=== PATIENT | female | born 1955 | race Caucasian/White ===

== ENCOUNTER → 2016-07-26 | Outpatient (CLI) | payer MEDICARE | LOC: KOH-I 13:02 | DX: F17.210 Nicotine dependence, cigarettes, uncomplicated (principal) | CPT/HCPCS: G0297 ==

== ENCOUNTER → 2016-09-25 | Outpatient (CLI) | payer MEDICARE | LOC: KOH-I 11:35 | DX: M25.552 Pain in left hip (principal) | CPT/HCPCS: 73502 ==